=== PATIENT | male | born 1995 | race American Indian/Alaskan Native ===

== ENCOUNTER 2021-07-12 16:36 | Emergency (ER) | payer SELFPAY ==
[2021-07-12 16:42] VITALS: BP 156/96
[2021-07-12] MEDS ORDERED: GABAPENTIN 300 MG CAP PO ONE (17:04)
[2021-07-12 17:49] LABS: Basophils % (Auto) 0.4 % (0.0-1.8); Eosinophils % (Auto) 0.7 % (0.0-4.3); Hemoglobin 14.2 gm/dl (11.8-15.2); Lymphocytes # (Auto) 1.4 K/mm3 (1.2-5.4); Lymphocytes % (Auto) 20.8 % (13.4-35.0); Mean Corpuscular HGB Conc 35 % (32-34); Mean Corpuscular Volume 89 fl (84-94); Monocytes # (Auto) 0.3 K/mm3 (0.0-0.8); Monocytes % (Auto) 5.1 % (0.0-7.3); Platelet Count 331 K/mm3 (140-440); Red Blood Count 4.63 M/mm3 (3.65-5.03); Red Cell Distribution Width 13.6 % (13.2-15.2)
[2021-07-12 17:52] LABS: Alanine Aminotransferase 40 units/L (7-56); Albumin 4.4 g/dL (3.9-5); BUN/Creatinine Ratio 8; Blood Urea Nitrogen 6 mg/dL (9-20); Calcium 9.9 mg/dL (8.4-10.2); Hemolysis Index 28
--- NOTE | 2021-07-12 19:52 | Emergency Department Report ---
ED General Adult HPI - General Chief complaint: Neuro Symptoms/Deficit Stated complaint: TINGLE SENSATION BOTH ARMS AND FACE Source: patient Mode of arrival: Ambulatory Limitations: No Limitations - History of Present Illness Initial comments: Patient is a 26-year-old -[place] male with no past medical history except cannabis abuse who presents to the ED with complaint of persistent constant upper and lower extremity as well as facial tingling and numbness sensation with touch for the last 3 days after smoking cannabis which is suspected to have been laced 5 days ago. Patient states that any palpation of his face or upper and lower extremities elicits tingling and numbness sensation which is painful. Patient denies dizziness, syncope, shortness of breath, feve r, chills, chest pain, palpitations, nausea and vomiting, headache, numbness and tingling or bilateral upper and lower extremity weakness or change in vision and syncope. MD Complaint: Numbness and tingling of upper and lower extremities bilaterally, -: Sudden, days(s) (3) Location: face, upper extremity, lower extremity Radiation: non-radiation Severity scale (0 -10): 3 Quality: burning, aching, sharp Consistency: constant Improves with: none Worsens with: none Associated Symptoms: denies other symptoms, other (Upper and lower extremity tingling sensation bilaterally; facial tingling sensation). denies: confusion, chest pain, cough, diaphoresis, fever/chills, headaches, loss of appetite, malaise, nausea/vomiting, seizure, shortness of breath, syncope, weakness Treatments Prior to Arrival: none - Related Data Previous Rx's Medication Instructions Recorded Last Taken Type Gabapentin 300 mg PO Q12H #30 cap 07/12/21 Unknown Rx predniSONE [Deltasone] 40 mg PO QDAY #12 tab 07/12/21 Unknown Rx Allergies Allergy/AdvReac Type Severity Reaction Status Date / Time No Known Allergies Allergy Verified 07/12/21 16:39 ED Review of Systems ROS: Stated complaint: TINGLE SENSATION BOTH ARMS AND FACE Other details as noted in HPI Constitutional: denies: chills, fever Eyes: denies: eye pain, eye discharge, vision change ENT: other (Facial tingling sensation). denies: ear pain, throat pain Respiratory: denies: cough, shortness of breath, wheezing Cardiovascular: denies: chest pain, palpitations Endocrine: no symptoms reported Gastrointestinal: denies: abdominal pain, nausea, diarrhea Genitourinary: denies: urgency, dysuria Musculoskeletal: arthralgia, myalgia, other (Diffuse upper and lower extremity tingling and numbness). denies: back pain, joint swelling Skin: denies: rash, lesions Neurological: denies: headache, weakness, paresthesias Psychiatric: anxiety. denies: depression Hematological/Lymphatic: denies: easy bleeding, easy bruising ED Past Medical Hx - Past Medical History Previous Medical History?: No - Surgical History Past Surgical History?: No - Medications Home Medications: Home Medications Medication Instructions Recorded Confirmed Last Taken Type Gabapentin 300 mg PO Q12H #30 cap 07/12/21 Unknown Rx predniSONE [Deltasone] 40 mg PO QDAY #12 tab 07/12/21 Unknown Rx ED Physical Exam - General Limitations: No Limitations General appearance: alert, in no apparent distress - Head Head exam: Present: atraumatic, normocephalic, normal inspection - Eye Eye exam: Present: normal appearance, PERRL, EOMI Pupils: Present: normal accommodation - ENT ENT exam: Present: normal exam, normal orophraynx, mucous membranes moist, TM's normal bilaterally, normal external ear exam - Neck Neck exam: Present: normal inspection, full ROM - Respiratory Respiratory exam: Present: normal lung sounds bilaterally. Absent: respiratory distress, wheezes, rales, rhonchi, chest wall tenderness, accessory muscle use, decreased breath sounds, prolonged expiratory - Cardiovascular Cardiovascular Exam: Present: normal rhythm, tachycardia, normal heart sounds. Absent: systolic murmur, diastolic murmur, rubs, gallop - GI/Abdominal GI/Abdominal exam: Present: soft, normal bowel sounds. Absent: tenderness, guarding, rebound, hyperactive bowel sounds, hypoactive bowel sounds, organomegaly - Extremities Exam Extremities exam: Present: normal inspection, full ROM, normal capillary refill - Back Exam Back exam: Present: normal inspection, full ROM. Absent: tenderness, CVA tenderness (R), CVA tenderness (L), muscle spasm, paraspinal tenderness - Neurological Exam Neurological exam: Present: alert, oriented X3, CN II-XII intact, normal gait, reflexes normal - Psychiatric Psychiatric exam: Present: normal affect, normal mood, anxious - Skin Skin exam: Present: warm, dry, intact, normal color. Absent: rash ED Course Vital Signs 10/06/21 16:39 Temperature 98 F Pulse Rate 101 H Respiratory 16 Rate Blood Pressure 156/96 [Left] O2 Sat by Pulse 96 Oximetry ED Medical Decision Making - Lab Data Result diagrams: 07/12/21 17:18 07/12/21 17:18 - Medical Decision Making This is a 26-year-old -[place] male with no past medical history except cannabis abuse who presents to the ED with complaint of persistent constant upper and lower extremity as well as facial tingling and numbness sensation with touch for the last 3 days after smoking cannabis which is suspected to have been laced 5 days ago. Patient states that any palpation of his face or upper and lower extremities elicits tingling and numbness sensation which is painful. In the ED, patient is alert and oriented x3 and is not in any distress. Patient is anxious, tachycardic in triage. Lab test results were reviewed and are all nonactionable. Patient was treated in the ED with gabapentin 300 mg p.o. x1. On reevaluation, patient's tachycardia resolved and patient was discharged home on medications and advised to follow-up with his primary care physician in 7 to 10 days for reevaluation or return to the ED immediately if symptoms get worse. - Differential Diagnosis Paresthesia; neuropathy; anxiety Critical care attestation.: If time is entered above; I have spent that time in minutes in the direct care of this critically ill patient, excluding procedure time. ED Disposition Clinical Impression: Paresthesia and pain of both upper extremities, Cannabis abuse Disposition: 01 HOME / SELF CARE / HOMELESS Is pt being admited?: No Does the pt Need Aspirin: No Condition: Stable Instructions: Peripheral Neuropathy, Substance Use Disorder, Paresthesia, [id number] Additional Instructions: Take medication with food, drink plenty of fluids and follow-up with your primary care physician in 7 to 10 days for reevaluation. Return to the ED immediately if symptoms get worse Prescriptions: predniSONE [Deltasone] 40 mg PO QDAY #12 tab Gabapentin 300 mg PO Q12H #30 cap Referrals: [facility] [Provider Group] - 7-10 days Time of Disposition: 19:38 Print Language: BERMUDIAN
== END 2021-07-12 21:46 | disposition home or self-care (01) ==
LOC: ED 16:36
DX: R20.2 Paresthesia of skin (principal); F12.10 Cannabis abuse, uncomplicated; Z79.899 Other long term (current) drug therapy
CPT/HCPCS: 36415; 80053; 85025; 99283